=== PATIENT | female | born 1950 | race African-American/Black ===

== ENCOUNTER 2018-04-27 21:38 | Emergency (ER) | payer OTHER ==
--- NOTE | 2018-04-27 23:46 | ER Document Report ---
ED General - General Chief Complaint: Medication Refill Stated Complaint: MEDICATION REFILL Time Seen by Provider: 04/27/18 23:39 Notes: Patient is a pleasant 68-year-old female who presents with complaint of just needing medication refills. She has no other complaints at this time. She looks well. She says that she is almost out of her psychiatric medications and therefore called her psychiatrist. She is due to see her next week with p sychiatrist to come to the ER and get her meds refilled so that she does not run out before she sees a psychiatrist. Patient has no other complaints at this time. Patient's daughter is at bedside. Patient has been acting appropriately. TRAVEL OUTSIDE OF THE [place] IN LAST 30 DAYS: No Past Medical History - Social History Smoking Status: Unknown if Ever Smoked Frequency of alcohol use: None Drug Abuse: None Family History: Reviewed & Not Pertinent Review of Systems - Review of Systems Notes: My Normal Review Basic REVIEW OF SYSTEMS: CONSTITUTIONAL : Denies fever, chills, or sweats. Denies recent illness. NEUROLOGICAL: Denies altered mental status or loss of consciousness. Denies headache. Denies weakness or paralysis or loss of use of either side. Denies problems with gait or speech. Denies sensory or motor loss. PSYCHIATRIC: Psychiatric medications ALL OTHER SYSTEMS REVIEWED AND NEGATIVE. Physical Exam - Vital signs Vitals: Temp Pulse Resp BP Pulse Ox 98.1 F 98 14 148/100 H 100 04/27/18 21:43 04/27/18 21:43 04/27/18 21:43 04/27/18 21:43 04/27/18 21:43 - Notes Notes: General Appearance: Well nourished, alert, cooperative, no acute distress, no obvious discomfort. Well-appearing. Vitals: reviewed, See vital signs table. Eyes: PERRL, EOMI, Conjuctiva clear Neuro: speech clear, oriented x 3, normal affect, responds appropriately to questions. Psychiatric: Patient answers all questions appropriately. Normal thought process. No evidence of hallucinations on exam. Course - Re-evaluation Re-evalutation: 04/28/18 05:12 I wrote prescription for the patient's medications. Patient is to return to ER if she has any further concerns. Patient and daughter agree with plan and patient will be discharged home. Dictation of this chart was performed using voice recognition software; therefore, there may be some unintended grammatical errors. 04/28/18 05:12 - Vital Signs Vital signs: Temp Pulse Resp BP Pulse Ox 98.6 F 99 14 124/75 97 04/27/18 23:57 04/27/18 23:57 04/27/18 21:43 04/27/18 23:57 04/27/18 23:57 Discharge - Discharge Clinical Impression: Medication refill Condition: Good Disposition: HOME, SELF-CARE Additional Instructions: Please take the medications as prescribed and follow up with your doctor this coming week for reevaluation and further refills of your prescription. Prescriptions: RX: Atorvastatin Calcium [Lipitor 40 mg Tablet] 40 mg PO QHS #14 tablet Quetiapine Fumarate [Seroquel] 200 mg PO QPM #14 tablet Quetiapine Fumarate [Seroquel] 50 mg PO QPM #14 tablet RX: Trazodone HCl 100 mg PO QPM #28 tablet
[2018-04-28 00:34] VITALS: BP 124/75
== END 2018-04-28 00:01 | disposition home or self-care (01) ==
LOC: ER 21:38
DX: Z76.0 Encounter for issue of repeat prescription (principal)
CPT/HCPCS: 99281

== ENCOUNTER 2018-05-17 09:26 | Emergency (ER) | payer OTHER ==
--- NOTE | 2018-05-17 09:49 | ER Document Report ---
ED Medical Screen (RME) - General Chief Complaint: Medication Refill Stated Complaint: MEDICATION REFILL Time Seen by Provider: 05/17/18 09:45 Primary Care Provider: JELANI MANN PSYD [ALLIED HEALTH PROFESSIONAL] - Follow up as needed Mode of Arrival: Ambulatory Information source: Patient Notes: Here for medication refill. She ran out of her Seroquel, atorvastatin and trazodone. Patient has not had blood work for over a year.. She does not follow with psychiatric. TRAVEL OUTSIDE OF THE [place] IN LAST 30 DAYS: No - HPI Severity: None Pain Level: Denies Associated Symptoms: None Exacerbated by: Denies Relieved by: Denies Similar symptoms previously: No Recently seen / treated by doctor: No - Related Data Frequency of alcohol use: None Drug Abuse: None Allergies/Adverse Reactions: No Known Allergies Allergy (Verified 05/17/18 09:44) Past Medical History Renal/ Medical History: Denies: Hx Peritoneal Dialysis Review of Systems - Review of Systems Constitutional: No symptoms reported EENT: No symptoms reported Cardiovascular: No symptoms reported Respiratory: No symptoms reported Gastrointestinal: No symptoms reported Genitourinary: No symptoms reported Female Genitourinary: No symptoms reported Musculoskeletal: No symptoms reported Skin: No symptoms reported Hematologic/Lymphatic: No symptoms reported Neurological/Psychological: No symptoms reported -: Yes All other systems reviewed and negative Physical Exam - Vital signs Vitals: Temp Pulse Resp BP Pulse Ox 98.4 F 85 17 130/86 H 100 05/17/18 09:31 05/17/18 09:31 05/17/18 09:31 05/17/18 09:31 05/17/18 09:31 Interpretation: Normal - General General appearance: Appears well, Alert - HEENT Head: Normocephalic, Atraumatic Eyes: Normal Pupils: PERRL - Respiratory Respiratory status: No respiratory distress Chest status: Nontender Breath sounds: Normal Chest palpation: Normal - Cardiovascular Rhythm: Regular Heart sounds: Normal auscultation Murmur: No - Abdominal Inspection: Normal Distension: No distension Bowel sounds: Normal Tenderness: Nontender Organomegaly: No organomegaly - Back Back: Normal, Nontender - Extremities General upper extremity: Normal inspection, Nontender, Normal color, Normal ROM, Normal temperature General lower extremity: Normal inspection, Nontender, Normal color, Normal ROM, Normal temperature, Normal weight bearing. No: Diogenes's sign - Neurological Neuro grossly intact: Yes Cognition: Normal Orientation: AAOx4 Bla Coma Scale Eye Opening: Spontaneous South Heart Coma Scale Verbal: Oriented Bal Coma Scale Motor: Obeys Commands Bal Coma Scale Total: 15 Speech: Normal Motor strength normal: LUE, RUE, LLE, RLE Sensory: Normal - Psychological Associated symptoms: Normal affect, Normal mood - Skin Skin Temperature: Warm Skin Moisture: Dry Skin Color: Normal Course - Vital Signs Vital signs: Temp Pulse Resp BP Pulse Ox 98.4 F 85 17 130/86 H 100 05/17/18 09:31 05/17/18 09:31 05/17/18 09:31 05/17/18 09:31 05/17/18 09:31 - Laboratory Result Diagrams: 05/17/18 09:49 05/17/18 09:49 Laboratory results interpreted by me: 05/17/18 05/17/18 05/17/18 09:49 09:49 10:30 MCV 71 L MCH 23.7 L RDW 17.9 H Eosinophils % 13.3 H Absolute Eosinophils 1.1 H Est GFR (Non-Af Amer) 59 L Glucose 118 H Ur Leukocyte Esterase TRACE H Urine Ascorbic Acid 20 H - Consults Dr Jelani Mann Reason for consultation: 05/17/18 14:33 Dr. Steven Mann was consulted regarding patient request for psychiatric medication refill. After consultation she recommend discontinuing Seroquel and Trazodone. Start patient on melatonin 3 mg nightly and clonidine 0.1 mg nightly. Patient has been given appointment [facility] on Tuesday, May 22, 2018 at 7 AM for psychiatric evaluation and follow- up. 05/17/18 14:37 Consulted provider: follow-up in office Doctor's Discharge - Discharge Clinical Impression: Medication refill Insomnia Qualifiers: Insomnia type: unspecified Qualified Code(s): G47.00 - Insomnia, unspecified Condition: Stable Disposition: HOME, SELF-CARE Instructions: Insomnia (OM) Additional Instructions: [facility] on Monday, May 19, 2008 10:07 AM for further psychiatric evaluation. Stop taking Seroquel and Trazodone to your told to continue by the psychiatrist. Return to the emergency room if your condition worsens. Prescriptions: Melatonin [Melatonin 3 mg Tablet] 3 mg PO QHS #15 tablet Clonidine HCl [Catapres] 0.1 mg PO DAILY #15 tablet Referrals: JELANI MANN PSYD [ALLIED HEALTH PROFESSIONAL] - Follow up as needed
[2018-05-17 10:07] LABS: ABSOLUTE BASOPHILS # (AUTO) 0.1 10^3/uL (0.0-0.2); ABSOLUTE EOSINOPHILS # (AUTO) 1.1 10^3/uL (0.0-0.6); ABSOLUTE LYMPHOCYTES (AUTO) 2.2 10^3/uL (0.5-4.7); ABSOLUTE MONOCYTES (AUTO) 0.6 10^3/uL (0.1-1.4); ABSOLUTE NEUT (AUTO) 4.3 10^3/uL (1.7-8.2); EOSINOPHILS % (AUTO) 13.3 % (0-6); LYMPHOCYTES % (AUTO) 26.6 % (13-45); MEAN CORPUSCULAR HEMOGLOBIN 23.7 pg (27.0-33.4); MEAN CORPUSCULAR HGB CONC 33.2 g/dL (32.0-36.0); MEAN CORPUSCULAR VOLUME 71 fl (80-97); MONOCYTES % (AUTO) 6.8 % (3-13); PLATELET COUNT 278 10^3/uL (150-450); RED BLOOD COUNT 5.04 10^6/uL (3.72-5.28); RED CELL DISTRIBUTION WIDTH 17.9 % (11.5-14.0); SEGMENTED NEUTROPHILS % (AUTO) 52.3 % (42-78); TOTAL CELLS COUNTED % (AUTO) 100 %; WHITE BLOOD COUNT 8.3 10^3/uL (4.0-10.5)
[2018-05-17 10:25] LABS: ALANINE AMINOTRANSFERASE 45 U/L (9-52); ALBUMIN 4.3 g/dL (3.5-5.0); ALKALINE PHOSPHATASE 89 U/L (38-126); ANION GAP 7 (5-19); ASPARTATE AMINO TRANSFERASE 32 U/L (14-36); BILIRUBIN,DIRECT 0.1 mg/dL (0.0-0.4); BILIRUBIN,TOTAL 0.5 mg/dL (0.2-1.3); BLOOD UREA NITROGEN 9 mg/dL (7-20); CALCIUM 9.6 mg/dL (8.4-10.2); CARBON DIOXIDE 30 mmol/L (22-30); CHLORIDE 103 mmol/L (98-107); GLUCOSE 118 mg/dL (75-110); SODIUM 139.5 mmol/L (137-145); TOTAL PROTEIN 7.5 g/dL (6.3-8.2)
[2018-05-17 10:54] LABS: APPEARANCE,URINE SLIGHTLY-CLOUDY; BILIRUBIN,URINE NEGATIVE (NEGATIVE); COLOR,URINE YELLOW; GLUCOSE, URINE NEGATIVE (NEGATIVE); KETONES,URINE NEGATIVE (NEGATIVE); LEUKOCYTE ESTERASE,URINE TRACE (NEGATIVE); NITRITE,URINE NEGATIVE (NEGATIVE); PROTEIN,URINE NEGATIVE (NEGATIVE); URINE SPECIFIC GRAVITY 1.006; UROBILINOGEN,URINE NEGATIVE mg/dL (<2.0)
[2018-05-17 11:07] LABS: URINE AMPHETAMINES SCREEN NEGATIVE; URINE BARBITURATES SCREEN NEGATIVE; URINE BENZODIAZEPINES SCREEN NEGATIVE; URINE COCAINE SCREEN NEGATIVE; URINE MARIJUANA (THC) SCREEN NEGATIVE; URINE METHADONE SCREEN NEGATIVE; URINE PHENCYCLIDINE SCREEN NEGATIVE
[2018-05-17 15:00] VITALS: BP 143/87
--- NOTE | 2018-05-19 17:09 | PSYCHOLOGICAL NOTE ---
Psych Note - Psych Note Date seen by psych provider: 05/17/18 Time seen by psych provider: 11:45 Psych Note: Reason for consult: Refill Contact Permissions:Daughter, Sandip Patient is a 68 yo female presenting to the ED for a refill on her Seroquel and Trazodone. Chart review shows this is her second visit for same and no other MH or psych visits. Consult requested for medication recommendations. Patient reports she takes 200mg Seroquel daily at 1-2am and 100mg Trazodone QHS for sleep. This is confirmed with her bottles which she brought with her. She reports an episode of depression at age 20 and none since. Patient endorses AV/H daily since her adolescence. "They talk to me/I might answer, like talking to myself". She relays at first "it was scary/I didn't want to accepts it" and now thinks of the people she sees and voices she hears as "spiritual like firends and family that have passed, or famous people". She a family MH hx of mother with early dementia, father Alzheimers and cousin with dementia who "overcame it". She denies medical concerns except high blood pressure, prior IP, OP, suicide attempts, or drug and alcohol use. Toxicology screen supports this statement. Patient moved here from [place] several months ago to live with her daughter and her psychiatrist is no longer calling in her medication. Patient c/o trouble falling asleep and staying asleep. Patient's daughter reports that mom has had AV/H nightmares for as long as she can remember. Patient staying up all night is hard on her, she says. Patient has a first appointment scheduled at [facility] on 06/14/18. Patient is alert and oriented x 4. Mood is euthymic with congruent affect aeb patient is pleasant, polite, and cooperative. Patient denies SI, HI, and endorses AV/H. She does not appear to be responding to internal stimuli and no delusions were noted. Conversational speech was WNL for rate, tone, and prosody. Eye contact was well maintained. Thought processes were linear, organized, and rational. Intellectual abilities were estimated within the average range. Attention/concentration was WNL while, insight, judgment, and impulse control were good. Diagnosis: Schizophrenia, per pt hx Medication recommendations as per psychiatric provider, Dr. Jones are as follows: Start Melatonin 3mg QHS Start Clonidine 0.1mg QHS Discontinue Seroquel and Trazodone Impression/Plan: Patient is psychiatrically clear from acute psychiatric services due to risk of harm to self or others aeb Patient denies SI, HI, and endorses AV/H, However, does not appear to be responding to internal stimuli, does not appear to be in any distress from AV/H and has developed strategies to self-manage the AV/H. No delusions were noted. Plan is to discharge to home with her daughter who reports no concerns for patient safety and will provide assistance/support to appointments. Behavioral Health made patient an appointment at [facility] for 05/22/18 at 0700 for medication management. Consulted Dr. Mann in the care and treatment of this patient and ED physician who is in agreement with disposition and recommendation.
== END 2018-05-17 15:01 | disposition home or self-care (01) ==
LOC: ER 09:26
DX: Z76.0 Encounter for issue of repeat prescription (principal); G47.00 Insomnia, unspecified
CPT/HCPCS: 36415; 80053; 80307; 81001; 85025; 99282